=== PATIENT | male | born 1990 | race Caucasian/White ===

== ENCOUNTER 2019-12-24 12:55 | Emergency (ER) | payer BC, OTHER ==
--- NOTE | 2019-12-24 13:43 | EDM.PDOC ---
ED HPI GENERAL MEDICAL PROBLEM - General Chief Complaint: Lower Extremity Injury/Pain Stated Complaint: PREVIOUSLY BROKEN FOOT TOOK OFF CAST AND SPLINT Time Seen by Provider: 12/24/19 13:12 Source of Information: Reports: Patient History Limitations: Reports: No Limitations - History of Present Illness INITIAL COMMENTS - FREE TEXT/NARRATIVE: Presents reporting recent fracture and ORIF. Patient had a splint postop but it got wet and he cut it off--now requesting a new stabilization device. He shows me a photo of his x-ray preop: Distal fibular shaft fracture, lateral malleolus fracture of the tibia. Patient also reports a tendon injury that was repaired. He did have ORIF surgery in [place] 5 days ago. From [place], requires follow-up by orthopedic surgery as he is not planning on returning to [place]. Postop pain is improving. Can wiggle toes, swelling improving, no fevers. - Related Data Allergies Allergy/AdvReac Type Severity Reaction Status Date / Time No Known Allergies Allergy Verified 12/24/19 13:15 Home Meds: Home Meds . [No Known Home Meds] 12/24/19 [History] Past Medical History - Past Health History Medical/Surgical History: Denies Medical/Surgical History - Infectious Disease History Infectious Disease History: Reports: Chicken Pox Social & Family History - Family History Family Medical History: Noncontributory Review of Systems - Review of Systems Review Of Systems: Comprehensive ROS is negative, except as noted in HPI. ED EXAM, GENERAL - Physical Exam Exam: See Below Exam Limited By: No Limitations General Appearance: Alert, No Apparent Distress Ears: Normal External Exam Nose: Normal Inspection Throat/Mouth: Normal Inspection Head: Atraumatic, Normocephalic Neck: Normal Inspection Respiratory/Chest: No Respiratory Distress Cardiovascular: Normal Peripheral Pulses Back Exam: Normal Inspection Extremities: Normal Inspection, Other (Left ankle incisions clean dry and in tact, mild ankle and forefoot swelling. Full range of motion of the toes. CMS intact distally) Neurological: Alert, Oriented, Normal Cognition Psychiatric: Normal Affect, Normal Mood Skin Exam: Warm, Dry, Intact, Normal Color, No Rash Lymphatic: No Adenopathy Course - Vital Signs Last Recorded V/S: Last Vital Signs Temp 36.1 C 12/24/19 13:12 Pulse 77 12/24/19 13:12 Resp 16 12/24/19 13:12 BP 115/52 L 12/24/19 13:12 Pulse Ox 98 12/24/19 13:12 - Orders/Labs/Meds Orders: Active Orders 24 hr Category Date Time Status DME for Discharge [COMM] Stat Oth 12/24/19 13:35 Ordered Departure - Departure Time of Disposition: 13:44 Disposition: Home, Self-Care 01 Condition: Good Clinical Impression: Fibula fracture, Fracture of distal end of tibia - Discharge Information Referrals: PCP,None [Primary Care Provider] - Jesus Alberto Arroyo MD [Physician] - Additional Instructions: The following information is given to patients seen in the emergency department who are being discharged to home. This information is to outline your options for follow-up care. We provide all patients seen in our emergency department with a follow-up referral. The need for follow-up, as well as the timing and circumstances, are variable depending upon the specifics of your emergency department visit. If you don't have a primary care physician on staff, we will provide you with a referral. We always advise you to contact your personal physician following an emergency department visit to inform them of the circumstance of the visit and for follow-up with them and/or the need for any referrals to a consulting specialist. The emergency department will also refer you to a specialist when appropriate. This referral assures that you have the opportunity for follow-up care with a specialist. All of these measure are taken in an effort to provide you with optimal care, which includes your follow-up. Under all circumstances we always encourage you to contact your private physician who remains a resource for coordinating your care. When calling for follow-up care, please make the office aware that this follow-up is from your recent emergency room visit. If for any reason you are refused follow-up, please contact the [facility] Emergency Department at and asked to speak to the emergency department charge nurse. 1. Wear boot at all times except to shower--dry well. 2. No weight bearing until seen by orthopedics 3. Dr. Arroyo contact: [facility]. Call for appointment at [phone] Sepsis Event Note (ED) - Evaluation Sepsis Screening Result: No Definite Risk - Focused Exam Vital Signs: Vital Signs Temp Pulse Resp BP Pulse Ox 12/24/19 13:12 36.1 C 77 16 115/52 L 98 - My Orders Last 24 Hours: My Active Orders 12/24/19 13:35 DME for Discharge [COMM] Stat - Assessment/Plan Last 24 Hours: My Active Orders 12/24/19 13:35 DME for Discharge [COMM] Stat
== END 2019-12-24 14:10 | disposition home or self-care (01) ==
LOC: MW.ED 12:55
DX: S82.409A Unspecified fracture of shaft of unspecified fibula, initial encounter for closed fracture (principal); S82.52XA Displaced fracture of medial malleolus of left tibia, initial encounter for closed fracture; X58.XXXA Exposure to other specified factors, initial encounter
CPT/HCPCS: 99282